=== PATIENT | male | born 1975 | race American Indian/Alaskan Native ===

== ENCOUNTER 2016-11-26 13:27 | Emergency (ER) | payer OTHER, MEDICAID ==
[2016-11-26 13:51] VITALS: BP 133/86
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
== END 2016-11-26 20:20 | disposition home or self-care (01) ==
LOC: ED 13:27
DX: S83.92XA Sprain of unspecified site of left knee, initial encounter (principal); S33.5XXA Sprain of ligaments of lumbar spine, initial encounter; S13.4XXA Sprain of ligaments of cervical spine, initial encounter; S63.502A Unspecified sprain of left wrist, initial encounter; R07.89 Other chest pain; V89.2XXA Person injured in unspecified motor-vehicle accident, traffic, initial encounter; Y93.9 Activity, unspecified; Y99.9 Unspecified external cause status; Y92.410 Unspecified street and highway as the place of occurrence of the external cause
CPT/HCPCS: 71020; 72040; 72100; 99283